=== PATIENT | female | born 1965 | race African-American/Black ===

== ENCOUNTER 2018-05-08 15:55 | Emergency (ER) | payer OTHER ==
[~2018-05-08] VITALS: Ht 157.5 cm; Wt 90.9 kg
[~2018-05-08 15:55] MED LIST: AMLO-511 PO
[2018-05-08 16:04] VITALS: BP 138/104
== END 2018-05-08 19:23 | disposition left against medical advice (07) ==
LOC: EMS 18:43
DX: R30.0 Dysuria (principal); Z53.21 Procedure and treatment not carried out due to patient leaving prior to being seen by health care provider

== ENCOUNTER 2023-01-06 16:56 | Inpatient (IN) | payer MEDICAID ==
[~2023-01-06] VITALS: Ht 160 cm; Wt 93.0 kg
[~2023-01-06 16:56] MED LIST changes: +AMLO-257 PO; -AMLO-511 PO
[2023-01-06 21:15] VITALS: BP 159/94
[2023-01-06] MEDS ORDERED: MELATONIN 5 MG TABLET PO PRN (21:30)
[2023-01-06] MEDS ORDERED: DEXTROSE 50%-WATER 25 GM/50 ML SYRINGE IVP PRN (21:30)
[2023-01-06] MEDS ORDERED: INSULIN LISPRO 100 UNITS/ML SQ PRN (21:30)
[2023-01-06] MEDS: DOCUSATE SODIUM 100 MG CAPSULE PO SCH (21:30)
[2023-01-06] MEDS: SENNOSIDES 8.6 MG TABLET PO SCH (21:30)
[2023-01-06] MEDS ORDERED: ACETAMINOPHEN 325 MG TABLET PO PRN (21:30)
[2023-01-06] MEDS: PRAVASTATIN SODIUM 40 MG TABLET PO SCH (22:17)
[2023-01-06] MEDS: HEPARIN SODIUM,PORCINE 5,000 UNITS/ML VIAL SQ SCH (22:17)
[2023-01-06] MEDS: METOPROLOL TARTRATE 25 MG TABLET PO SCH (22:17)
[2023-01-06] MEDS: ETHYL ALCOHOL 62% ANTISEPTIC NASAL SANITIZER 0.6 ML AMPUL NASAL SCH (22:18)
[2023-01-07] MEDS ORDERED: PNEUMOCOCCAL VACCINE POLYVALENT 0.5 ML VIAL [PPSV23] IM. ONE (03:30)
[2023-01-07 06:57] LABS: GLUCOMETER DEV NAME(LOC) 2WR.1C; GLUCOSE,POINT OF CARE 91 MG/DL (70-110)
[2023-01-07 08:05] VITALS: BP 145/71
[2023-01-07] MEDS ORDERED: ASPIRIN 81 MG CHEWABLE TABLET PO SCH (09:00)
[2023-01-07] MEDS: DOCUSATE SODIUM 100 MG CAPSULE PO SCH ×2 (09:00→20:18)
[2023-01-07 09:12] LABS: BASOPHILS % (AUTO) 1.1 % (0.0-2.0); EOSINOPHILS % (AUTO) 5.5 % (1.0-6.0); HEMATOCRIT 46.2 % (36-46); HEMOGLOBIN 14.6 g/dL (12.0-16.0); LYMPHOCYTES # (AUTO) 3.3 K/uL (1.0-4.8); LYMPHOCYTES % (AUTO) 52.6 % (22.0-44.0); MEAN CORPUSCULAR HEMOGLOBIN 26.7 pg (26.0-34.0); MEAN CORPUSCULAR HGB CONC 31.6 G/dL (31.0-37.0); MEAN CORPUSCULAR VOLUME 85 fL (80-100); MONOCYTES # (AUTO) 0.5 K/uL (0.1-1.0); MONOCYTES % (AUTO) 7.6 % (2.0-9.0); NEUTROPHILS # (AUTO) 2.1 K/uL (1.8-7.7); NEUTROPHILS % (AUTO) 33.2 % (40.0-70.0); PLATELET COUNT (AUTO) 270 K/uL (150-450); RED BLOOD CELL COUNT(AUTO) 5.46 MIL/uL (4.00-5.20); RED CELL DISTRIBUTION WIDTH 15.8 % (11.5-14.5)
[2023-01-07] MEDS: ETHYL ALCOHOL 62% ANTISEPTIC NASAL SANITIZER 0.6 ML AMPUL NASAL SCH ×2 (09:21→20:16)
[2023-01-07] MEDS: LOSARTAN POTASSIUM 50 MG TABLET PO SCH (09:21)
[2023-01-07] MEDS: METOPROLOL TARTRATE 25 MG TABLET PO SCH ×2 (09:22→20:17)
[2023-01-07] MEDS: NICOTINE 21 MG/24 HOUR PATCH TD SCH (09:23)
[2023-01-07] MEDS: HEPARIN SODIUM,PORCINE 5,000 UNITS/ML VIAL SQ SCH ×3 (09:23→20:17)
[2023-01-07 09:32] LABS: ALANINE AMINOTRANSFERASE 26 U/L (12-78); ALBUMIN 3.4 g/dL (3.4-5.0); ALKALINE PHOSPHATASE 111 U/L (46-116); ANION GAP 12 mmol/L (8-16); ASPARTATE AMINOTRANSFERASE 17 U/L (15-37); BILIRUBIN,TOTAL 0.5 mg/dL (0.1-1.0); CALCIUM, TOTAL 9.2 mg/dL (8.8-10.5); CARBON DIOXIDE 24 mmol/L (22-29); CHLORIDE 105 mmol/L (98-107); CREATININE 0.84 mg/dL (0.60-1.30); GLOMERULAR FILTR. RATE CALC > 60 mL/min (>60); GLUCOSE,RANDOM 95 mg/dL (70-110); POTASSIUM 4.1 mmol/L (3.5-5.1); SODIUM SERUM 141 mmol/L (136-145); TOTAL PROTEIN, SERUM 7.9 g/dL (6.4-8.2)
[2023-01-07 18:41] LABS: GLUCOMETER DEV NAME(LOC) 2WR.2B; GLUCOSE,POINT OF CARE 93 MG/DL (70-110)
[2023-01-07 20:15] VITALS: BP 147/91
[2023-01-07] MEDS: PRAVASTATIN SODIUM 40 MG TABLET PO SCH (20:17)
[2023-01-07] MEDS: SENNOSIDES 8.6 MG TABLET PO SCH (20:18)
[2023-01-08 06:51] LABS: GLUCOMETER DEV NAME(LOC) 2WR.1C; GLUCOSE,POINT OF CARE 92 MG/DL (70-110)
[2023-01-08 09:05] VITALS: BP 132/71
[2023-01-08] MEDS: ETHYL ALCOHOL 62% ANTISEPTIC NASAL SANITIZER 0.6 ML AMPUL NASAL SCH ×2 (09:20→20:52)
[2023-01-08] MEDS: LOSARTAN POTASSIUM 50 MG TABLET PO SCH (09:20)
[2023-01-08] MEDS: DOCUSATE SODIUM 100 MG CAPSULE PO SCH ×3 (09:20→21:00)
[2023-01-08] MEDS: METOPROLOL TARTRATE 25 MG TABLET PO SCH ×2 (09:20→20:52)
[2023-01-08] MEDS: HEPARIN SODIUM,PORCINE 5,000 UNITS/ML VIAL SQ SCH ×3 (09:21→20:52)
[2023-01-08] MEDS: NICOTINE 21 MG/24 HOUR PATCH TD SCH (09:21)
[2023-01-08 17:06] LABS: GLUCOMETER DEV NAME(LOC) 2WR.2B; GLUCOSE,POINT OF CARE 152 MG/DL (70-110)
[2023-01-08 20:30] VITALS: BP 143/88
[2023-01-08] MEDS: PRAVASTATIN SODIUM 40 MG TABLET PO SCH (20:52)
[2023-01-08] MEDS: SENNOSIDES 8.6 MG TABLET PO SCH ×2 (20:52→21:00)
[2023-01-09 09:00] VITALS: BP 132/69
[2023-01-09] MEDS: DOCUSATE SODIUM 100 MG CAPSULE PO SCH ×2 (09:00→20:34)
[2023-01-09] MEDS: ETHYL ALCOHOL 62% ANTISEPTIC NASAL SANITIZER 0.6 ML AMPUL NASAL SCH ×2 (09:31→20:29)
[2023-01-09] MEDS: METOPROLOL TARTRATE 25 MG TABLET PO SCH ×2 (09:31→20:31)
[2023-01-09] MEDS: HEPARIN SODIUM,PORCINE 5,000 UNITS/ML VIAL SQ SCH ×2 (09:32→20:31)
[2023-01-09] MEDS: LOSARTAN POTASSIUM 50 MG TABLET PO SCH (09:32)
[2023-01-09] MEDS: NICOTINE 21 MG/24 HOUR PATCH TD SCH (09:32)
[2023-01-09 20:00] VITALS: BP 138/79
[2023-01-09] MEDS: PRAVASTATIN SODIUM 40 MG TABLET PO SCH (20:31)
[2023-01-09] MEDS: SENNOSIDES 8.6 MG TABLET PO SCH (20:34)
[2023-01-10 08:07] VITALS: BP 134/94
[2023-01-10] MEDS: DOCUSATE SODIUM 100 MG CAPSULE PO SCH (08:11)
[2023-01-10] MEDS: ETHYL ALCOHOL 62% ANTISEPTIC NASAL SANITIZER 0.6 ML AMPUL NASAL SCH ×2 (08:11→20:11)
[2023-01-10] MEDS: LOSARTAN POTASSIUM 50 MG TABLET PO SCH (08:11)
[2023-01-10] MEDS: HEPARIN SODIUM,PORCINE 5,000 UNITS/ML VIAL SQ SCH (08:12)
[2023-01-10] MEDS: METOPROLOL TARTRATE 25 MG TABLET PO SCH ×2 (08:12→20:11)
[2023-01-10] MEDS ORDERED: SENNOSIDES 8.6 MG TABLET PO PRN (10:00)
[2023-01-10] MEDS ORDERED: DOCUSATE SODIUM 100 MG CAPSULE PO PRN (10:00)
[2023-01-10] MEDS: NICOTINE 21 MG/24 HOUR PATCH TD SCH (10:08)
[2023-01-10 20:00] VITALS: BP 143/85
[2023-01-10] MEDS: PRAVASTATIN SODIUM 40 MG TABLET PO SCH (20:23)
[2023-01-11] MEDS ORDERED: NICO-803 TD (04:45)
[2023-01-11] MEDS ORDERED: METO25 PO (04:45)
[2023-01-11] MEDS ORDERED: PRAV40TA4 PO (04:45)
[2023-01-11] MEDS ORDERED: LOSA-382 PO (04:45)
[2023-01-11] MEDS: NICOTINE 21 MG/24 HOUR PATCH TD SCH (07:55)
[2023-01-11] MEDS: LOSARTAN POTASSIUM 50 MG TABLET PO SCH (07:56)
[2023-01-11] MEDS: METOPROLOL TARTRATE 25 MG TABLET PO SCH ×2 (07:56→22:40)
[2023-01-11] MEDS: ETHYL ALCOHOL 62% ANTISEPTIC NASAL SANITIZER 0.6 ML AMPUL NASAL SCH ×2 (07:56→22:40)
[2023-01-11 08:34] VITALS: BP 158/83
[2023-01-11 20:01] VITALS: BP 142/103
[2023-01-11] MEDS: PRAVASTATIN SODIUM 40 MG TABLET PO SCH (22:40)
[2023-01-12 08:18] VITALS: BP 144/94
[2023-01-12] MEDS: METOPROLOL TARTRATE 25 MG TABLET PO SCH (08:24)
[2023-01-12] MEDS: NICOTINE 21 MG/24 HOUR PATCH TD SCH (08:24)
[2023-01-12] MEDS: ETHYL ALCOHOL 62% ANTISEPTIC NASAL SANITIZER 0.6 ML AMPUL NASAL SCH (08:24)
[2023-01-12] MEDS: LOSARTAN POTASSIUM 50 MG TABLET PO SCH (08:24)
[2023-01-12] MEDS ORDERED: NICO-803 TD (09:19)
[2023-01-12] MEDS ORDERED: PRAV40TA4 PO (09:19)
[2023-01-12] MEDS ORDERED: METO25 PO (09:19)
[2023-01-12] MEDS ORDERED: LOSA-382 PO (09:19)
== END 2023-01-12 11:15 | disposition home health service (06) | DRG 44 ==
LOC: UNDOADMIN 21:10 → 2WR 21:10 → UNDODISIN 01-09 13:40
PROVIDERS: ADMIT Physical Medicine & Rehabilitation; ATTEND Physical Medicine & Rehabilitation
PROC: 3E0234Z Introduction of Serum, Toxoid and Vaccine into Muscle, Percutaneous Approach (ICD-10-PCS; principal; 2023-01-06)
DX: I61.8 Other nontraumatic intracerebral hemorrhage (principal); I11.0 Hypertensive heart disease with heart failure; G81.91 Hemiplegia, unspecified affecting right dominant side; I50.9 Heart failure, unspecified; R29.705 NIHSS score 5; E11.9 Type 2 diabetes mellitus without complications; R13.10 Dysphagia, unspecified; F17.210 Nicotine dependence, cigarettes, uncomplicated; F15.10 Other stimulant abuse, uncomplicated; E04.2 Nontoxic multinodular goiter; E78.00 Pure hypercholesterolemia, unspecified; I44.1 Atrioventricular block, second degree; Z82.3 Family history of stroke; Z82.49 Family history of ischemic heart disease and other diseases of the circulatory system; Z86.73 Personal history of transient ischemic attack (TIA), and cerebral infarction without residual deficits; Z88.0 Allergy status to penicillin; Z91.148 Patient's other noncompliance with medication regimen for other reason
CPT/HCPCS: 80053; 82962; 85025; 87081; 90732; 92507; 92523; 97110; 97112; 97116; 97162; 97166; 97530; 97535; 99366; J1644; Q9967